=== PATIENT | female | born 1945 | race African-American/Black ===

== ENCOUNTER 2020-12-01 10:07 | Emergency (ER) | payer OTHER ==
[2020-12-01 10:53] VITALS: BMI 28.1
[2020-12-01 11:59] LABS: BASO % 0.9 % (0-2.0); EOS % 0.5 % (0-4.5); HEMATOCRIT 35.3 % (32.4-45.2); HEMOGLOBIN 11.8 GM/dL (10.7-15.3); MCH 27.3 pg (25.7-33.7); MCHC 33.5 g/dl (32.0-36.0); MEAN CELL VOLUME 81.6 fl (80-96); MEAN PLT VOLUME 6.8 fl (7.5-11.1); MONO % 9.9 % (3.8-10.2); NEUT % 72.7 % (42.8-82.8); PLATELET COUNT 489 10^3/uL (134-434); RBC 4.32 M/mm3 (3.60-5.2); RDW 14.8 % (11.6-15.6); WHITE BLOOD COUNT 9.3 K/mm3 (4.0-10.0)
[2020-12-01 12:10] LABS: INR 1.07 (0.83-1.09); PROTHROMBIN TIME (PATIENT) 12.9 SEC (9.7-13.0)
[2020-12-01 12:12] LABS: ACTIVATED PTT 29.1 SECONDS (25.2-36.5)
[2020-12-01 12:18] LABS: CHLORIDE 103 mmol/L (98-107); SODIUM 142 mmol/L (136-145)
[2020-12-01 12:20] LABS: CALCIUM 9.3 mg/dL (8.5-10.1)
[2020-12-01 12:21] LABS: ALBUMIN 3.6 g/dl (3.4-5.0); ANION GAP 9 MMOL/L (8-16); BLOOD UREA NITROGEN 20.9 mg/dL (7-18); CO2 29 mmol/L (21-32); GLUCOSE,RANDOM 81 mg/dL (74-106)
[2020-12-01 12:24] LABS: CREATININE 0.9 mg/dL (0.55-1.3); SGOT/AST 17 U/L (15-37); SGPT/ALT 23 U/L (13-61)
[2020-12-01 12:25] LABS: BILIRUBIN,TOTAL 0.3 mg/dL (0.2-1); TOT PROT 7.6 g/dl (6.4-8.2)
[2020-12-01 12:27] LABS: ALK PHOS 120 U/L (45-117)
[2020-12-01 12:29] LABS: N-TERMINAL BNP 237.4 pg/ml (5-450)
[2020-12-01 15:45] VITALS: BP 146/76; PULSE 88; TEMP 98
== END 2020-12-01 16:15 | disposition home or self-care (01) ==
LOC: JER 10:07
DX: M25.562 Pain in left knee (principal); R22.43 Localized swelling, mass and lump, lower limb, bilateral; M71.22 Synovial cyst of popliteal space [Baker], left knee
CPT/HCPCS: 36415; 71045-TC-FY; 73562-TC-LT-FY; 80053; 83880; 84484; 85025; 85610; 85730; 93005; 93010; 93971-TC; 99285-25